=== PATIENT | male | born 1940 | race Caucasian/White ===

== ENCOUNTER → 2025-01-02 08:13 | Outpatient (REF) | payer MEDICARE, OTHER, SELFPAY ==
[2025-01-02 08:31] LABS: Glucose 95 mg/dl (70-99)
== END ==
LOC: PET 08:13
PROVIDERS: ATTENDING PHYSICIAN Internal Medicine Hematology & Oncology
DX: C82.98 Follicular lymphoma, unspecified, lymph nodes of multiple sites (principal)
CPT/HCPCS: 36415; 82947